=== PATIENT | female | born 1965 | race Hispanic/Latino ===

== ENCOUNTER 2017-10-30 09:00 | Emergency (ER) | payer BC | END 2017-10-30 12:46 | disposition home or self-care (01) | LOC: ERS 09:00 | DX: R07.0 Pain in throat (principal); T50.995A Adverse effect of other drugs, medicaments and biological substances, initial encounter; E03.9 Hypothyroidism, unspecified; I10 Essential (primary) hypertension; Z79.899 Other long term (current) drug therapy | CPT/HCPCS: 99284 ==

== ENCOUNTER 2022-04-08 11:47 | Outpatient (CLI) | payer BC | END 2022-04-08 11:48 | disposition home or self-care (01) | LOC: SCSRAD 11:47 | PROVIDERS: ATTEND Family Medicine | DX: J20.9 Acute bronchitis, unspecified (principal) | CPT/HCPCS: 71046 ==

== ENCOUNTER 2022-08-28 10:04 | Outpatient (CLI) | payer BC | END 2022-08-28 10:05 | disposition home or self-care (01) | LOC: BICMAMMO 10:04 | PROVIDERS: ATTEND Family Medicine | DX: Z12.31 Encounter for screening mammogram for malignant neoplasm of breast (principal) | CPT/HCPCS: 77063; 77067 ==